=== PATIENT | male | born 1965 | race Caucasian/White ===

== ENCOUNTER 2017-02-20 17:51 | Emergency (ER) | payer BC ==
[2017-02-20] MEDS ORDERED: FAMOTIDINE IV PREMIX 20 MG in PREMIX BAG 1 BAG IVPB ONE (18:22)
[2017-02-20] MEDS ORDERED: SODIUM CHLORIDE 0.9% (FLUSH) 10 ML SYG IV PRN (18:22)
[2017-02-20] MEDS ORDERED: FAMOTIDINE IV PREMIX 50 ML IVPB ONE (18:33)
--- NOTE | 2017-02-20 18:43 | ED.PDOC ---
History of Present Illness - General Information Source: patient Exam Limitations: no limitations - History of Present Illness Initial Comments: PT REPORTS 2 EPISODES OF BLOODY STOOL THAT BEGAN JUST A FEW HOURS AGO. PT DENIES ABDOMINAL PAIN, NAUSEA, OR VOMITING. PT REPORTS 2 SIMILAR EPISODES SEVERAL YEARS AGO THAT WAS DUE TO A DIVERTICULAR BLEED. PT DENIES LIGHTHEADEDNESS AT THIS TIME. Timing/Duration: 1-3 hours Improving Factors: nothing Worsening Factors: nothing Associated Symptoms: denies symptoms <Alondra Nelsonalberto Cora - Last Filed: 02/20/17 18:41> <Anshul Crabtree - Last Filed: 02/20/17 19:55> - General Chief Complaint: GI Problem Stated Complaint: blood in stool Time Seen by Provider: 02/20/17 18:22 Review of Systems - Review of Systems Constitutional: Denies: chills, fever EENTM: Denies: nose congestion, throat pain Respiratory: Denies: cough, short of breath Cardiology: Denies: chest pain, palpitations, syncope Gastrointestinal/Abdominal: States: see HPI, diarrhea. Denies: nausea, vomiting Genitourinary: Denies: dysuria, frequency Musculoskeletal: Denies: joint pain, joint swelling Skin: Denies: dryness, lesions Neurological: Denies: headache, numbness Endocrine: States: no symptoms reported Hematologic/Lymphatic: Denies: easy bleeding, easy bruising <Vivian Nelson - Last Filed: 02/20/17 18:41> Past Medical History (General) - Patient Medical History Hx Congestive Heart Failure: No Hx Diabetes: No Hx Other PMH: Yes - DIVERTICULOSIS/GI BLEED X 2 Surgical History: cholecystectomy - Vaccination History Hx Influenza Vaccination: No - Social History Hx Tobacco Use: No <Vivian Nelson - Last Filed: 02/20/17 18:41> Family Medical History - Family History Father Family History: Unknown Living Status: Unknown <Vivian Nelson - Last Filed: 02/20/17 18:41> Physical Exam - Physical Exam General Appearance: Alert, Comfortable, No apparent distress, Well Groomed, Well Hydrated, Well Nourished Eyes, Ears, Nose, Throat Exam: normal ENT inspection Neck: supple, normal inspection Respiratory: lungs clear, normal breath sounds, no respiratory distress Cardiovascular/Chest: regular rate, rhythm, no murmur Gastrointestinal/Abdominal: non tender, soft Rectal Exam: other - GROSSLY BLOODY STOOL COLLECTED FROM PATIENT Back Exam: normal inspection, no CVA tenderness Extremity: non-tender, normal inspection Neurologic: alert, normal mood/affect, oriented x 3 Skin Exam: normal color, warm/dry <OmarRanjeetzhanna Shepherd - Last Filed: 02/20/17 18:41> Progress - EKG/XRAY/CT EKG: Sinus - @85BPM, LEFT AXIS DEVIATION, LVH, RBBB, nonspecific ST T wave Chg - NO OLD EKG FOR COMPARISON <Vivian Nelson - Last Filed: 02/20/17 18:41> - Progress Progress: 02/20/17 19:15 Last Vital Signs Temp 97.3 F L 02/20/17 18:01 Pulse 82 02/20/17 18:44 Resp 20 02/20/17 18:44 BP 161/100 02/20/17 18:44 Pulse Ox 97 02/20/17 18:01 - Results/Orders Results/Orders: Laboratory Tests 02/20/17 02/20/17 02/20/17 18:30 18:30 18:30 WBC 9.2 RBC 5.49 Hgb 16.8 Hct 48.6 MCV 88.6 MCH 30.6 MCHC 34.5 RDW 13.4 Plt Count 126 L MPV 8.9 Absolute Neuts (auto) 6.60 Absolute Lymphs (auto) 1.70 Absolute Monos (auto) 0.70 Absolute Eos (auto) 0.10 Absolute Basos (auto) 0.00 Neutrophils % 72.1 Lymphocytes % 18.6 L Monocytes % 7.2 Eosinophils % 1.6 Basophils % 0.5 PT 11.1 INR 0.980 PTT (SP) 34.6 Sodium 135 Potassium 4.2 Chloride 100 L Carbon Dioxide 26 Anion Gap 13.2 BUN 17 Creatinine 1.02 BUN/Creatinine Ratio 16.7 Random Glucose 112 H Serum Osmolality 272.4 L Calcium 9.5 Amylase 47 Lipase 39 <Anshul Crabtree - Last Filed: 02/20/17 19:55> Departure <Vivian Nelson - Last Filed: 02/20/17 18:41> - Departure Time of Disposition: 19:53 <Anshul Crabtree - Last Filed: 02/20/17 19:55> - Departure Clinical Impression: GIB (gastrointestinal bleeding) Qualifiers: GI bleed type/associated pathology: diverticulitis Qualified Code(s): K57.93 - Diverticulitis of intestine, part unspecified, without perforation or abscess with bleeding Disposition: Transfer to Hospital Departure Forms: Patient Portal Self Enrollment Referrals: Yuniel Sims MD [Primary Care Provider] - 1-2 Weeks Home Medications: Ambulatory Orders NK [NK] 02/20/17 Transfer to Outside Facility - Transfer Information Accepting Facility: [facility] - D/W Dr. Vela-Hospitalist/[facility] Reason for Transfer: required specialist not available - Gastroenterolologist <Anshul Crabtree - Last Filed: 02/20/17 19:55>
[2017-02-20 20:09] VITALS: BP 147/91; TEMP 97.6; O2SAT 97
== END 2017-02-20 20:30 | disposition short-term general hospital (02) ==
LOC: ER 17:51
DX: K57.93 Diverticulitis of intestine, part unspecified, without perforation or abscess with bleeding (principal)
CPT/HCPCS: 80048; 82150; 83690; 85025; 85610; 85730; 86850; 86900; 86901; 93005; J3490

== ENCOUNTER → 2018-05-16 | Outpatient (CLI) | payer BC ==
--- NOTE | 2018-05-16 20:22 | CT ---
EXAM DESCRIPTION: Abdomen/Pelvis w/o Contrast: Computed Tomography. CLINICAL HISTORY: N20.0 COMPARISON: CT scan of the abdomen and pelvis 05/04/2011. TECHNIQUE: Spiral-axial scans at 2.5 x 2.5 mm intervals through the abdomen and pelvis. Coronal and sagittal 2.0mm reconstructions. No IV or oral contrast. Total Exam DLP: 1004.77 mGy-cm. This exam was performed according to our departmental CT dose-optimization program which includes automated exposure control, adjustment of the mA and/or kV according to patient size and/or use of iterative reconstruction technique; to reduce radiation dose to as low as reasonably achievable (ALARA). FINDINGS: Kidneys and Ureters: 5.2 x 4.4 mm radiodense stone in the distal left ureter just proximal to the ureterovesical junction. Thickening of the ureteral wall around the stone. Dilation of the distal ureter proximal to the stone with minimal periureteral edema. Proximal left renal pelvis and ureter are not distended and there is no left renal hydronephrosis 1.5 mm radiodense stone in the inferior left collecting system also seen on the prior study. 2 mm radiodense stone in the lower mid collecting system of the right kidney. More inferiorly a 1 mm stone in the collecting system. Possible small bit of gravel in the upper collecting system. No hydronephrosis. 2.2 cm low-density circumscribed lesion in the right kidney with Hounsfield density +5. Cyst is larger than on the prior study. No perinephric fluid bilaterally. Pelvic organs: no radiodense stones in the urinary bladder. Prostate gland with central calcification abutting the base of the bladder transverse measurement approximately 4.6 x 4.0 cm. No free fluid in the pelvis. Lung and pleura bases: Minimal pleural thickening in the left base. Coronary artery calcifications and stents. Liver, spleen, stomach, and adrenal glands: Small sliding hiatal hernia. Solid organs are unremarkable. . Pancreas, Gallbladder, Ducts: Surgical clips in the gallbladder fossa. Duct is unremarkable. Minimal fatty infiltration of the pancreas Aorta: Minimal atherosclerotic calcification distally with no significant narrowing. Minimal ectasia of the bilateral common iliac arteries. Small Bowel: Unremarkable. Terminal Ileum/Cecum: Normal caliber of the TI and the small appendix with normal fatty density. Diverticula on the cecum anterior to the terminal ileum and ileocecal valve. Stable since the prior study. Colon: Diffuse fecal material throughout the colon with no significant distention. Mesentery: Minimal stranding around the distal left ureter. Spine and Bony Pelvis: Cystic degenerative changes of the lateral right acetabular facet. Mild arthrosis of the SI joints. Spondylosis and anterolisthesis L5-S1 with significant canal and foraminal narrowing. Abdominal Wall/Back Soft Tissues: Negative. IMPRESSION: 1. 5.2 x 4.4 mm radiodense stone in the distal left ureter just proximal to the ureterovesical junction. Dilation of the distal ureter with wall thickening and minimal periureteral edema. Normal caliber of the proximal left ureter with no left hydronephrosis. This suggests long-term stone obstruction of the distal left ureter. Stable small nonobstructing stone in the inferior left collecting system. New small nonobstructing stones in the right kidney. Enlarging cyst in the right kidney since the prior study. Consider ultrasound correlation. 2. Mild enlargement of the prostate gland impressing on the base of the urinary bladder has enlarged since the prior study. 3. Progressive spondylosis and anterolisthesis at L5-S1 with increased foraminal and canal narrowing. Correlate for radiculopathy. Electronically signed by: Ish Quiroz MD 05/16/2018 8:19 PM [employer]
== END ==
LOC: CT 15:19
PROVIDERS: ATTEND Family Medicine
DX: N20.0 Calculus of kidney (principal); N28.1 Cyst of kidney, acquired; N40.0 Benign prostatic hyperplasia without lower urinary tract symptoms

== ENCOUNTER → 2018-09-06 | Outpatient (CLI) | payer BC | DX: M06.9 Rheumatoid arthritis, unspecified (principal) ==

== ENCOUNTER → 2020-01-31 | Outpatient (CLI) | payer BC | LOC: GMAJS 14:10 | PROVIDERS: ATTEND Physician Assistant | DX: R30.0 Dysuria (principal) ==